=== PATIENT | male | born 1950 | race Caucasian/White ===

== ENCOUNTER 2017-05-22 12:06 | Emergency (ER) | payer BC ==
[2017-05-22] MEDS ORDERED: predniSONE TAB* 20 MG PO ONE (15:13)
--- NOTE | 2017-05-22 15:17 | ED ---
Skin Complaint - History of Current Complaint Chief Complaint: EDGeneral Time Seen by Provider: 05/22/17 14:15 Stated Complaint: RT SHOULDER INFLAMMATION & PAIN Pain Intensity: 0 - Allergy/Home Medications Allergies/Adverse Reactions: Allergies Allergy/AdvReac Type Severity Reaction Status Date / Time No Known Allergies Allergy Verified 05/22/17 12:26 PMH/Surg Hx/FS Hx/Imm Hx Endocrine/Hematology History: Denies: Hx Diabetes Cardiovascular History: Reports: Hx Hypertension Denies: Hx Pacemaker/ICD History: Denies: Hx Renal Disease Sensory History: Denies: Hx Hearing Aid Psychiatric History: Denies: Hx Panic Disorder - Surgical History Surgery Procedure, Year, and Place: HERNIA REPAIR 2-3 YRS AGO; KNEE SCOPE 10-11 YRS AGO; SKIN PRE CANCEROUS LESIONS(SEVERAL); SINUS Infectious Disease History: No Infectious Disease History: Denies: Traveled Outside the [place] in Last 30 Days - Social History Alcohol Use: None Substance Use Type: Reports: None Smoking Status (MU): Never Smoked Tobacco Physical Exam Vital Signs On Initial Exam: Initial Vitals Temp Pulse Resp BP Pulse Ox 96.8 F 71 18 122/72 98 05/22/17 12:09 05/22/17 12:09 05/22/17 12:09 05/22/17 12:09 05/22/17 12:09 Diagnostics - Vital Signs Vital Signs Temp Pulse Resp BP Pulse Ox 05/22/17 12:23 96.8 F 71 18 122/72 98 05/22/17 12:09 96.8 F 71 18 122/72 98 - Laboratory Lab Statement: Any lab studies that have been ordered have been reviewed, and results considered in the medical decision making process. Course/Dx - Diagnoses Provider Diagnoses: Bee sting reaction Discharge - Discharge Plan Condition: Stable Disposition: HOME Prescriptions: diPHENhydraMINE PO* [Benadryl PO 25 MG TAB*] 25 mg PO BEDTIME PRN #5 tab PRN Reason: Itching predniSONE TAB* [Deltasone TAB*] 40 mg PO DAILY #4 tab Patient Education Materials: Insect Bite or Sting (ED) Referrals: No Primary Care Phys,NOPCP [Primary Care Provider] - [facility] [place]Outside] Additional Instructions: Take prescribed medication as directed. Prednisone in the morning and Benadryl at bedtime. You may take another dose of Benadryl as needed however it may make you drowsy. Apply hydrocortisone cream topically as desired, twice daily. It is sold over the counter. Keep clean and dry. If symptoms are not improving or are worsening please seek medical attention as you made need an antibiotics. Follow up with PCP and keep an eye out on symptoms.
[2017-05-22 15:31] VITALS: BP 145/71
== END 2017-05-22 15:29 | disposition home or self-care (01) ==
LOC: ED 12:06
DX: T63.441A Toxic effect of venom of bees, accidental (unintentional), initial encounter (principal); Y92.9 Unspecified place or not applicable
CPT/HCPCS: 99282; J7512